=== PATIENT | female | born 1945 | race Asian ===

== ENCOUNTER 2018-05-26 12:30 | Inpatient (IN) | payer MEDICARE ==
[~2018-05-26] VITALS: Ht 147.3 cm; Wt 58.5 kg
--- NOTE | 2018-05-26 12:42 | EKG ---
[address] [address] Test Date: 2018-05-26 Test Time: 12:37:16 Pat Name: SHERI VAZQUEZ Department: Room: Gender: F Offset Pressman: : 1945 Requested By: NOBLE FAY Order Number: [id number] Reading MD: Michael Westbrook MD Measurements Intervals [place] Rate: 76 P: 62 DC: 184 QRS: 52 QRSD: 76 T: 38 QT: 382 QTc: 434 Interpretive Statements SINUS RHYTHM Electronically Signed On 05-29-2018 11:06:57 CDT by Michael Westbrook MD
--- NOTE | 2018-05-26 12:45 | RAD ---
CT CODE STROKE HEAD WO History: CODE STROKE, SLURRED SPEECH, GENERALIZED WEAKNESS, CAN NOT FEEL LEGS Comparison: None. Technique: Noncontrast CT imaging was performed of the head. Exposure: One or more of the following individualized dose reduction techniques were utilized for this examination: 1. Automated exposure control 2. Adjustment of the mA and/or kV according to patient size 3. Use of iterative reconstruction technique. Findings: No acute extra-axial or parenchymal hemorrhage is identified. There is no significant intra-axial mass effect, midline shift, or extra-axial fluid collection. The zaragoza-white differentiation of the major vascular territories is preserved. The ventricles, sulci, and cisterns are within normal limits in size and configuration. There is some patchy mild ill-defined low-density of the supratentorial parenchyma. The mastoid air cells and the visualized paranasal sinuses are aerated. No acute calvarial abnormality is identified. There is atherosclerotic calcification of the carotid siphons bilaterally. Impression: 1. No acute intracranial abnormality is identified. If there is concern for evolving or acute ischemia, followup CT or MRI could be beneficial. There is patchy mild ill-defined low-density of the supratentorial parenchyma, possibly due to chronic microvascular ischemic disease. FOR INTERNAL CODING PURPOSES Critical result: Findings discussed with NOBLE FAY at 05/26/2018 12:39 PM. Electronically signed by: Matty Conn MD (05/26/2018 12:41 PM) [email or web address]
[2018-05-26 12:56] LABS: BASO % 0 % (0-3); EOS # 0.2 x10^3/uL (0.0-0.7); EOS % 2 % (0-3); HEMATOCRIT 39.2 % (36.0-47.0); HEMOGLOBIN 13.5 g/dL (12.0-15.5); LYMPH # 1.3 x10^3/uL (1.0-4.8); LYMPH % 13 % (24-48); MEAN CORPUSCULAR HEMOGLOBIN 32 pg (25-35); MEAN CORPUSCULAR HGB CONC 34 g/dL (31-37); MEAN CORPUSCULAR VOLUME 93 fL (79-100); MONO # 0.9 x10^3/uL (0.0-1.1); MONO % 9 % (0-9); NEUT # 7.8 x10^3uL (1.8-7.7); NEUT % 77 % (31-73); PLATELET COUNT 302 x10^3/uL (140-400); RED BLOOD COUNT 4.23 x10^6/uL (3.50-5.40); RED CELL DISTRIBUTION WIDTH 14.7 % (11.5-14.5); WHITE BLOOD COUNT 10.2 x10^3/uL (4.0-11.0)
--- NOTE | 2018-05-26 12:57 | RAD ---
Portable chest, 05/26/2018: HISTORY: Weakness, slurred speech The heart size is normal. There is moderate calcific plaquing and tortuosity of the thoracic aorta. The pulmonary vascularity is normal. No pulmonary infiltrate is seen. There is no evidence of pleural fluid. There are capsular calcifications related to bilateral breast implants. IMPRESSION: No acute cardiopulmonary abnormality is detected. Electronically signed by: Jeff De La Cruz MD (05/26/2018 12:54 PM) [facility]
[2018-05-26 13:17] LABS: ALBUMIN 3.2 g/dL (3.4-5.0); CALCIUM 8.5 mg/dL (8.5-10.1); CREATININE 0.8 mg/dL (0.6-1.0); GFR 70.5; TOTAL BILIRUBIN 0.6 mg/dL (0.2-1.0); TOTAL PROTEIN 6.3 g/dL (6.4-8.2)
[2018-05-26 13:18] LABS: POTASSIUM 3.7 mmol/L (3.5-5.1)
[2018-05-26 13:28] LABS: BACTERIA,URINE MOD /HPF (0-FEW); BILIRUBIN,URINE NEG (NEG); CLARITY,URINE CLEAR; COLOR,URINE YELLOW; GLUCOSE,URINE NEG (NEG); NITRITE,URINE NEG (NEG); RBC,URINE 0 /HPF (0-2); SQUAMOUS EPITHELIAL CELL,UR OCC /LPF; UROBILINOGEN,URINE 0.2 mg/dL (0.2 mg/dL)
[2018-05-26] MEDS ORDERED: IPRATRPIUM/ALBUTEROL 0.5/2.5MG 3 ML NEBU. NEB ONE (13:30)
[2018-05-26 13:47] LABS: % LYMPHS 10 % (24-48); % METAS 1 % (0-0); % MONOS 5 % (0-10); % SEGS 83 % (35-66); PLT ESTIMATE ADEQUATE (ADEQUATE)
--- NOTE | 2018-05-26 14:05 | PHYS DOC ---
Past History Past Medical History: COPD, Dementia, UTI Alcohol Use: None Drug Use: None Adult General Chief Complaint Chief Complaint: NEURO SYMPTOMS/DEFICITS HPI HPI 72-year-old female patient brought in by her daughter because of sudden onset of generalized weakness and dyspnea to speak that started about an over prior to arrival to ER. Patient mother who is a physician endodontic assistant called on her way to come to the Hospital regarding her mother's symptom and code stroke was activated. Patient did not have fever and chills, cough and congestion, focal neuro deficit but was weak when she wanted to get to the car. Review of Systems Review of Systems Constitutional: Denies fever or chills [] Eyes: Denies change in visual acuity, redness, or eye pain [] HENT: Denies nasal congestion or sore throat [] Respiratory: Denies cough or shortness of breath [] Cardiovascular: No additional information not addressed in HPI [] GI: Denies abdominal pain, nausea, vomiting, bloody stools or diarrhea [] : Denies dysuria or hematuria [] Musculoskeletal: Denies back pain or joint pain [] Integument: Denies rash or skin lesions [] Neurologic: Reports slurred speech and headache, denies focal weakness or sensory changes [] Endocrine: Denies polyuria or polydipsia [] All other systems were reviewed and found to be within normal limits, except as documented in this note. Current Medications Current Medications Current Medications Medications (Trade) Dose Ordered Sig/Gloria Start Time Stop Time Status Last Admin Dose Admin Albuterol/ Ipratropium (Duoneb) 3 ml 1X ONCE 05/26/18 13:30 05/26/18 13:31 DC 05/26/18 13:30 3 ML Allergies Allergies Allergies Coded Allergies Type Severity Reaction Last Updated Verified No Known Drug Allergies 05/26/18 No Physical Exam Physical Exam Constitutional: Well developed, well nourished, mild distress, non-toxic appearance. [] HENT: Normocephalic, atraumatic, oropharynx moist, no oral exudates, nose normal. [] Eyes: PERRLA, EOMI, conjunctiva normal, no discharge. [] Neck: Normal range of motion, no tenderness, supple, no stridor. [] Cardiovascular:Heart rate regular rhythm, no murmur [] Lungs & Thorax: Bilateral breath sounds clear to auscultation [] Abdomen: Bowel sounds normal, soft, no tenderness, no masses, no pulsatile masses. [] Skin: Warm, dry, no erythema, no rash. [] Back: No tenderness, no CVA tenderness. [] Extremities: No tenderness, no cyanosis, no clubbing, ROM intact, no edema. [] Neurologic: Alert and oriented X 2 like her usual, mild dyspnea at rest that gradually improved, normal motor function, normal sensory function, no focal deficits noted. NIH scale of 2[] Psychologic: Affect normal, judgement normal, mood normal. [] Current Patient Data Vital Signs Vital Signs Date Time Temp Pulse Resp B/P (MAP) Pulse Ox O2 Delivery O2 Flow Rate FiO2 05/26/18 13:39 77 20 171/78 (109) 96 Room Air 05/26/18 12:30 98.1 Lab Results Laboratory Tests Test 05/26/18 12:40 05/26/18 12:44 05/26/18 12:55 White Blood Count 10.2 x10^3/uL (4.0-11.0) Red Blood Count 4.23 x10^6/uL (3.50-5.40) Hemoglobin 13.5 g/dL (12.0-15.5) Hematocrit 39.2 % (36.0-47.0) Mean Corpuscular Volume 93 fL (79-100) Mean Corpuscular Hemoglobin 32 pg (25-35) Mean Corpuscular Hemoglobin Concent 34 g/dL (31-37) Red Cell Distribution Width 14.7 % (11.5-14.5) H Platelet Count 302 x10^3/uL (140-400) Neutrophils (%) (Auto) 77 % (31-73) H Lymphocytes (%) (Auto) 13 % (24-48) L Monocytes (%) (Auto) 9 % (0-9) Eosinophils (%) (Auto) 2 % (0-3) Basophils (%) (Auto) 0 % (0-3) Neutrophils # (Auto) 7.8 x10^3uL (1.8-7.7) H Lymphocytes # (Auto) 1.3 x10^3/uL (1.0-4.8) Monocytes # (Auto) 0.9 x10^3/uL (0.0-1.1) Eosinophils # (Auto) 0.2 x10^3/uL (0.0-0.7) Basophils # (Auto) 0.0 x10^3/uL (0.0-0.2) Segmented Neutrophils % 83 % (35-66) H Lymphocytes % 10 % (24-48) L Monocytes % 5 % (0-10) Metamyelocytes % 1 % (0-0) H Platelet Estimate Adequate (ADEQUATE) Prothrombin Time 9.3 SEC (9.4-11.4) L Prothrombin Time INR 0.9 (0.9-1.1) PTT 24 SEC (23-33) Sodium Level 130 mmol/L (136-145) L Potassium Level 3.7 mmol/L (3.5-5.1) Chloride Level 94 mmol/L (98-107) L Carbon Dioxide Level 31 mmol/L (21-32) Anion Gap 5 (6-14) L Blood Urea Nitrogen 12 mg/dL (7-20) Creatinine 0.8 mg/dL (0.6-1.0) Estimated GFR (Cockcroft-Gault) 70.5 BUN/Creatinine Ratio 15 (6-20) Glucose Level 87 mg/dL (70-99) Lactic Acid Level 1.3 mmol/L (0.4-2.0) Calcium Level 8.5 mg/dL (8.5-10.1) Total Bilirubin 0.6 mg/dL (0.2-1.0) Aspartate Amino Transferase (AST) 35 U/L (15-37) Alanine Aminotransferase (ALT) 32 U/L (14-59) Alkaline Phosphatase 75 U/L (46-116) Troponin I Quantitative < 0.017 ng/mL (0-0.055) Total Protein 6.3 g/dL (6.4-8.2) L Albumin 3.2 g/dL (3.4-5.0) L Albumin/Globulin Ratio 1.0 (1.0-1.7) Glucose (Fingerstick) 90 mg/dL (70-99) Urine Collection Type U cath Urine Color Yellow Urine Clarity Clear Urine pH 8.5 Urine Specific [place] 1.015 Urine Protein 30 mg/dl (NEG-TRACE) Urine Glucose (UA) Neg mg/dL (NEG) Urine Ketones (Stick) Neg mg/dL (NEG) Urine Blood Neg (NEG) Urine Nitrite Neg (NEG) Urine Bilirubin Neg (NEG) Urine Urobilinogen Dipstick 0.2 mg/dL (0.2 mg/dL) Urine Leukocyte Esterase Neg (NEG) Urine RBC 0 /HPF (0-2) Urine WBC 5-10 /HPF (0-4) Urine Squamous Epithelial Cells Occ /LPF Urine Bacteria Mod /HPF (0-FEW) EKG EKG EKG interpreted by me. EKG at 1237 showed normal sinus rhythm at rate of 76, no acute ST and T-wave abnormalities. Radiology/Procedures Radiology/Procedures [address] [address] IMAGING REPORT Signed PATIENT: SHERI VAZQUEZ ACCOUNT: [id number] : 1945 LOCATION: ER AGE: 72 SEX: F EXAM STATUS: PRE ER ORD. PHYSICIAN: NOBLE FAY MD REASON: weakness, slurred speech PROCEDURE: PORTABLE CHEST 1V Portable chest, 05/26/2018: HISTORY: Weakness, slurred speech The heart size is normal. There is moderate calcific plaquing and tortuosity of the thoracic aorta. The pulmonary vascularity is normal. No pulmonary infiltrate is seen. There is no evidence of pleural fluid. There are capsular calcifications related to bilateral breast implants. IMPRESSION: No acute cardiopulmonary abnormality is detected. Electronically signed by: Jeff De La Cruz MD (05/26/2018 12:54 PM) [facility] DICTATED AND SIGNED BY: JEFF DE LA CRUZ MD DATE: 05/26/18 1252 CC: NOBLE FAY MD ~ [address] [address] IMAGING REPORT Signed PATIENT: SHERI VAZQUEZ ACCOUNT: [id number] : 1945 LOCATION: ER AGE: 72 SEX: F EXAM STATUS: PRE ER ORD. PHYSICIAN: NOBLE FAY MD REASON: CODE STROKE, SLURRED SPEECH, GENERALIZED WEAKNESS PROCEDURE: CT CODE STROKE HEAD WO CT CODE STROKE HEAD WO History: CODE STROKE, SLURRED SPEECH, GENERALIZED WEAKNESS, CAN NOT FEEL LEGS Comparison: None. Technique: Noncontrast CT imaging was performed of the head. Exposure: One or more of the following individualized dose reduction techniques were utilized for this examination: 1. Automated exposure control 2. Adjustment of the mA and/or kV according to patient size 3. Use of iterative reconstruction technique. Findings: No acute extra-axial or parenchymal hemorrhage is identified. There is no significant intra-axial mass effect, midline shift, or extra-axial fluid collection. The zaragoza-white differentiation of the major vascular territories is preserved. The ventricles, sulci, and cisterns are within normal limits in size and configuration. There is some patchy mild ill-defined low-density of the supratentorial parenchyma. The mastoid air cells and the visualized paranasal sinuses are aerated. No acute calvarial abnormality is identified. There is atherosclerotic calcification of the carotid siphons bilaterally. Impression: 1. No acute intracranial abnormality is identified. If there is concern for evolving or acute ischemia, followup CT or MRI could be beneficial. There is patchy mild ill-defined low-density of the supratentorial parenchyma, possibly due to chronic microvascular ischemic disease. FOR INTERNAL CODING PURPOSES Critical result: Findings discussed with NOBLE FAY at 05/26/2018 12:39 PM. Electronically signed by: Natalya Conn MD (05/26/2018 12:41 PM) [id number] DICTATED AND SIGNED BY: NATALYA CONN MD DATE: 05/26/18 1237 CC: NOBLE FAY MD ~ Course & Med Decision Making Course & Med Decision Making Pertinent Labs and Imaging studies reviewed. (See chart for details) Evaluation of patient in ER showed 72-year-old female patient brought in by his mother because of sudden onset of slurred speech and generalized weakness. Patient had stated patient that gradually improved. Patient did not have focal neuro deficit. ct head was unremarkable except for mild uti and hyponatremia.Dr Cannon accepted admission at 1350. Dragon Disclaimer Dragon Disclaimer This electronic medical record was generated, in whole or in part, using a voice recognition dictation system. Departure Departure: Impression: Primary Impression: TIA (transient ischemic attack) Additional Impressions: UTI (urinary tract infection) Hyponatremia Disposition: ADMITTED INPATIENT (At 1351) Admitting Physician: Michael Cannon (accepted admission at 1350) Condition: IMPROVED Problem Qualifiers NOBLE FAY MD May 26, 2018 14:05
[2018-05-26] MEDS ORDERED: cefTRIAXone SODIUM 1 GM VIAL IV ONE (14:34)
[2018-05-26] MEDS ORDERED: IV NORMAL SALINE 50ML 50 ML ONE (14:34)
[2018-05-26] MEDS ORDERED: ALBU0.63 NEB (16:25)
[2018-05-26] MEDS ORDERED: FLUT1DIS5 IH (16:25)
[2018-05-26] MEDS ORDERED: ASPI-630 PO (16:25)
[2018-05-26] MEDS ORDERED: MEMA10TA PO (16:25)
[2018-05-26] MEDS ORDERED: SPIR100T4 PO (16:25)
[2018-05-26] MEDS ORDERED: LISI10TA2 PO (16:25)
[2018-05-26 16:28] VITALS: BP 166/87
[2018-05-26] MEDS ORDERED: NON FORMULARY ITEM (Albuterol Sulfate (Albuterol Sulfate Neb Soln) 1 VIAL) NEB PRN (16:30)
[2018-05-26] MEDS ORDERED: ALBUTEROL SULFATE 2.5 MG/3 ML NEBU. NEB PRN (16:45)
[2018-05-26] MEDS ORDERED: IBUPROFEN 600 MG TABLET. PO PRN (17:45)
[2018-05-26] MEDS: IV NORMAL SALINE 1,000ML 1,000 ML IV SCH (19:26)
--- NOTE | 2018-05-26 19:26 | HP ---
ADMIT DATE: 05/26/2018 HISTORY OF PRESENT ILLNESS: The patient is a 72-year-old female patient who apparently was brought to the Emergency Room complaining of weakness in both lower extremities. She is also having slurring of speech. These symptoms have apparently resolved within 2 hours. She was evaluated in the Emergency Room, has had extensive lab data, which showed that she has mild hyponatremia, serum sodium of 130. Her CT scan of the head showed no acute intracranial abnormality identified with no acute extraaxial or parenchymal hemorrhage is identified. There is no significant intraaxial mass effect, midline shift or extraaxial fluid collection. The zaragoza-white differentiation of the major vascular territories is preserved. The ventricles, sulci and cisterns are within normal limits in size and configuration. There is some patchy mild ill-defined low density of the supratentorial parenchyma. The mastoid air cells and visualized paranasal sinuses are aerated. No acute calvarial abnormality is identified. There is atherosclerotic calcification of the carotid siphons bilaterally. In fact, by the time I saw her, the patient was very sleepy and said she has not slept the whole night yesterday, but did not show any obvious neurological deficit. PAST MEDICAL HISTORY: Significant for chronic obstructive pulmonary disease, hyperlipidemia, hypertension and dementia. PAST SURGICAL HISTORY: Unremarkable. ALLERGIES: She has no known drug allergies. MEDICATIONS: She is currently on following medications: She is on albuterol sulfate 0.63 mg per 3 mL by nebulizer 4 times a day, lisinopril 10 mg once a day, spironolactone 100 mg once a day, aspirin 81 mg once a day, Namenda 10 mg twice a day, and Advair Diskus 500/50 one puff twice a day. FAMILY HISTORY: Unremarkable. SOCIAL HISTORY: She lives with her daughter. She apparently does not smoke, drink alcohol or use any recreational drugs. REVIEW OF SYSTEMS: As per history of present illness. PHYSICAL EXAMINATION: GENERAL: On arrival to the Emergency Room, she looked well and was clearly in no apparent respiratory distress. There was no pallor, jaundice, or cyanosis. No lymphadenopathy, no thyromegaly. No jugular venous distension. No limb edema. VITAL SIGNS: Her heart rate was 78, blood pressure 171/78, temperature was 98.1, respiratory rate was 18 and oxygen saturation was 96% on room air. HEAD, EYES, EARS, NOSE AND THROAT: Showed normocephalic, atraumatic. NECK: Supple. HEART: Showed normal first and second heart sounds with no gallop, rub or murmur. CHEST: Clear to auscultation. No crepitation or rhonchi. ABDOMEN: Distended, soft, nontender. No guarding or rigidity. No organomegaly. Hernial orifice intact and bowel sounds normal. NEUROLOGIC: She says somewhat sleepy with easily arousable. All her cranial nerves intact. She moves her extremities spontaneously. She has no evidence of any cerebellar dysfunction. LABORATORY DATA: While in the Emergency Room, she had lab work done, which showed a white cell count of 10,000, hemoglobin 13.5, hematocrit 39, MCV 93, and platelet count of 302,000. Her chemistry showed a serum sodium 130, potassium 3.7, chloride 94, bicarbonate 31, anion gap of 5, BUN 12, creatinine 0.8, estimated GFR was 70 mL per minute. Her glucose was 87, lactic acid is 1.3, calcium was 8.5. Total bilirubin, AST, ALT, alkaline phosphatase were normal. Her total protein was 6.3, albumin 3.2. Her prothrombin time was 9.3, INR was 0.9, aPTT was 24. Her urinalysis showed the urine was yellow, clear with a pH of 8.5, specific gravity 1.015. There is small amount of protein. The urine was negative for glucose, ketones, blood, nitrite and leukocyte esterase. There are no rbc's, very few wbc's and moderate amount of bacteria. DIAGNOSTIC DATA: Her chest x-ray showed that the heart size is normal. There is moderate calcific plaquing and tortuosity of the thoracic aorta. The pulmonary vascularity is normal. No pulmonary infiltrate is seen. There is no evidence of pleural fluid or capsular calcification related to bilateral breast implants. Her CT scan of the head showed no acute intracranial abnormality identified. There is patchy mild ill-defined low density of the supratentorial parenchyma, possibly due to chronic microvascular ischemic disease. ASSESSMENT AND PLAN: The patient was admitted with possible transient ischemic attack. She has multiple other medical problems including chronic obstructive pulmonary disease, hyperlipidemia, hypertension. We will continue with all her current medications. We will consult Dr. Perez. We will check her lipid profile tomorrow as well as do bilateral carotid Doppler ultrasound. We will also consult the physical and occupational therapist. VINCENT MARTINEZ MD DR: EMILY/john JOB#: [id number] / [id number]
[2018-05-26 19:35] VITALS: BP 152/88
--- NOTE | 2018-05-26 19:54 | RAD ---
Bilateral carotid arterial duplex study 05/26/2018 Clinical History: Slurred speech. Bilateral lower extremity weakness. Technique: Using a combination of real-time ultrasound imaging and color-flow and pulse Doppler imaging techniques, duplex evaluation of the carotid and vertebral arterial structures within the neck was performed. Multiple images were obtained. Velocity measurements estimating the degree of stenosis are based on NASCET criteria. Findings: Mild atheromatous plaque formation is seen involving both carotid bifurcations. The peak systolic velocities are not significantly elevated. No hemodynamically significant stenosis is seen. The vertebral arteries demonstrate normal antegrade flow. Impression: Mild atheromatous plaque formation is seen involving both carotid bifurcations. No hemodynamically significant stenosis is seen. Electronically signed by: Magdiel Martinez MD (05/26/2018 7:51 PM) [facility]
[2018-05-26] MEDS: BUDESONIDE 0.5 MG/2 ML NEBU NEB SCH (20:00)
[2018-05-26] MEDS: ALBUTEROL SULFATE 2.5 MG/3 ML NEBU. NEB SCH (20:00)
[2018-05-26] MEDS: MEMANTINE 5 MG TABLET. PO SCH (20:52)
[2018-05-26] MEDS ORDERED: NON FORMULARY ITEM (Fluticasone/Salmeterol (Advair 500-50 Diskus) 1 PUFF) IH SCH (21:00)
[2018-05-26 22:58] VITALS: BP 178/82
[2018-05-27] MEDS: ALBUTEROL SULFATE 2.5 MG/3 ML NEBU. NEB SCH ×4 (05:03→20:11)
[2018-05-27 05:39] VITALS: BP 179/79
[2018-05-27 06:47] LABS: CALCIUM 7.9 mg/dL (8.5-10.1); CREATININE 0.7 mg/dL (0.6-1.0); GFR 82.3; POTASSIUM 3.4 mmol/L (3.5-5.1)
[2018-05-27 07:39] VITALS: BP 155/76
[2018-05-27] MEDS ORDERED: POTASSIUM CHLORIDE 20 MEQ TABLET.ER. PO ONE (07:45)
[2018-05-27] MEDS: ASPIRIN 81 MG TAB.CHEW PO SCH (08:31)
[2018-05-27] MEDS: MEMANTINE 5 MG TABLET. PO SCH ×2 (08:31→20:14)
[2018-05-27] MEDS: IV NORMAL SALINE 1,000ML 1,000 ML IV SCH (08:32)
[2018-05-27] MEDS ORDERED: SPIRONOLACTONE 25 MG TABLET PO SCH (09:00)
[2018-05-27] MEDS ORDERED: LISINOPRIL 10 MG TABLET PO SCH (09:00)
[2018-05-27] MEDS: BUDESONIDE 0.5 MG/2 ML NEBU NEB SCH ×2 (10:37→20:11)
[2018-05-27 11:49] VITALS: BP 140/64
[2018-05-27] MEDS: methylPREDNISolone SOD SUCC PF 40 MG/ML VIAL. IV SCH ×2 (13:59→21:37)
[2018-05-27] MEDS: POTASSIUM CHLORIDE 20 MEQ TABLET.ER. PO SCH ×2 (13:59→20:14)
[2018-05-27 15:58] VITALS: BP 138/81
[2018-05-27 18:25] VITALS: BP 144/85
--- NOTE | 2018-05-27 19:13 | PN ---
DATE: 05/27/2018 SUBJECTIVE: The patient denies any new medical or neurological complaints OBJECTIVE: GENERAL: Well-developed, well-nourished female, not in acute distress. VITAL SIGNS: Blood pressure 152/88, respiratory rate 16, pulse is 79 and regular, temperature 98.3, oxygen saturation is 95% on room air. HEENT: Normocephalic, atraumatic, otherwise unremarkable. NECK: Supple. Negative for carotid bruit, lymphadenopathy or thyromegaly. LUNGS: Clear to A and P. CARDIOVASCULAR: Regular rhythm. Normal S1, S2. There is no S3, S4, or murmur. ABDOMEN: Soft. Bowel sounds positive. EXTREMITIES: Negative for cyanosis, clubbing or pitting edema. NEUROLOGIC: Normal mental status and intact cranial nerves. There is no evidence of focal motor or sensory deficit. Deep tendon reflexes were symmetric with absent Achilles responses. Gait not tested. LABORATORY DATA: Chemistry revealed sodium 128, potassium 3.4, chloride 96, CO2 of 28, BUN 12, creatinine 0.7, glucose 86, calcium 7.9. IMPRESSION: 1. Possible transient ischemic attack -- resolved without any neurological deficit. 2. Multiple medical problems include hypertension, hyperlipidemia, chronic radicular lower back pain, chronic neck pain, hyponatremia, and mild hypokalemia. RECOMMENDATIONS: 1. Correct hyponatremia slowly potassium supplements. 2. Physical therapy as tolerated. 3. Continue with current management initiated by Dr. Cannon. M Sd VILLA MD DR: PAOLA/john JOB#: [id number] / [id number]
--- NOTE | 2018-05-27 19:17 | CONS ---
DATE OF CONSULTATION: 05/26/2018 REFERRING PHYSICIAN: Dr. Cannon. REASON FOR CONSULTATION: Rule out stroke versus TIA. HISTORY OF PRESENT ILLNESS: This is a 72-year-old right-handed, female who was admitted through Emergency Room after she presented with a 2-hour history of slurred speech and generalized weakness, more prominent on the lower extremities. The patient denies headaches, visual disturbances, nausea, vomiting, chest pain, shortness of breath or palpitation or dysphagia or vertigo. On arrival to Emergency Room, her vital signs revealed a blood pressure of 171/78. A nonenhanced head CT scan revealed no evidence of acute intracranial process, but it showed a chronic microvascular ischemic disease. PAST MEDICAL HISTORY: Significant for hypertension, dementia, chronic obstructive pulmonary disease, and hyperlipidemia, chronic low back pain, chronic neck pain, history of peripheral neuropathy in the lower extremities. PAST SURGICAL HISTORY: The patient underwent a cardiac catheterization and revealed no evidence of coronary artery disease. Otherwise, unremarkable. ALLERGIES: No known drug allergies. FAMILY HISTORY: Noncontributory. SOCIAL HISTORY: The patient is . She did quit smoking a long time ago and she denies alcohol drinking or illicit drug use. CURRENT HOME MEDICATIONS: Includes albuterol inhaler and nebulizer, lisinopril 10 mg once daily, spironolactone 100 mg daily, aspirin 81 mg daily, Namenda 10 mg daily, Advair Diskus inhaler 1 puff twice daily. REVIEW OF SYSTEMS: A 10-point review of systems as mentioned above in history of present illness. PHYSICAL EXAMINATION: GENERAL: Obese white female, not in acute distress. She is a well-developed, well-nourished white female, not in acute distress. She weighs 134.5 pounds. VITAL SIGNS: Blood pressure is 152/88, respiratory rate 16, pulse is 79, temperature is 98.3, oxygen saturation is 95% on room air. HEENT: Normocephalic, atraumatic, otherwise unremarkable. NECK: Supple. Negative for carotid bruit, lymphadenopathy or thyromegaly. LUNGS: Clear to A and P. CARDIOVASCULAR: Regular rate and rhythm, normal S1, S2. There is no S3, S4 or murmur. ABDOMEN: Soft. Bowel sounds positive. EXTREMITIES: Negative for cyanosis, clubbing or pitting edema. NEUROLOGIC: Mental Status: The patient is alert and oriented x 3. The speech is fluent. There is no language dysfunction. Memory, judgment, and abstract thinking are fair. The patient denies hallucination or delusion. Cranial Nerves: Visual gar are full. The pupils are reactive to light and accommodation. The extraocular movements are intact. There is no nystagmus. There is no facial motor or sensory deficit. Hearing is intact bilaterally. The palate is elevated symmetrically. Sternocleidomastoid muscles are powerful bilaterally. The patient shrugs her shoulders symmetrically, protrudes her tongue in the midline without fasciculation or atrophy. Motor: No focal muscle bulk was seen. The tone is normal. The strength is 5/5 throughout. Sensory examination revealed diminished pinprick and light touch senses in patchy distributions in both lower extremities. Deep tendon reflexes were symmetric with absent Achilles responses. Gait not tested. LABORATORY DATA: CBC revealed white blood cells of 10.2 thousand, hemoglobin 13.5, hematocrit 39.2, platelet count 302,000. Chemistry revealed sodium of 130, potassium 3.7, chloride 194, CO2 of 31, BUN 12, creatinine 0.8 and glucose 87. Liver enzymes are normal. Urinalysis is negative for urinary leukocyte esterase, negative nitrite with white blood cells of 5-10. DIAGNOSTIC: Carotid Doppler study revealed no significant carotid stenosis. A chest x-ray revealed evidence of cardiopulmonary process and nonenhanced head CT scan as mentioned above in history of present illness. RECOMMENDATIONS: 1. Questionable of TIA with a normal neurological examination and negative carotid Doppler study for significant arterial stenosis. 2. Mild hyponatremia. 3. Multiple medical problems include hypertension, hyperlipidemia, chronic radicular lower back pain and possible peripheral neuropathy in the lower extremities. RECOMMENDATION: 1. Continue with current management as initiated by Dr. Cannon. 2. Continue with aspirin and home medications. 3. Physical therapy evaluation. 4. We will arrange to have EMG/NCS of the lower extremities to rule out lumbosacral radiculopathy versus entrapment neuropathy in the lower extremity versus peripheral neuropathy. M Sd VILLA MD DR: PAOLA/john JOB#: [id number] / [id number]
--- NOTE | 2018-05-27 20:09 | PN ---
DATE: 05/27/2018 SUBJECTIVE: The patient is resting slightly propped up in bed, in no apparent distress. She denied any slurring of speech or difficulty, weakness of both lower extremities. 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 We discontinued her spironolactone as well as lisinopril. I discontinued her IV fluid and started her on fluid restriction about 1200 mL in 24 hours a day. She continued to be extremely wheezy and therefore, we will start her on IV steroids and we will monitor her labs closely. PHYSICAL EXAMINATION: GENERAL: When I examined her this morning, she looked well and was clearly in no apparent respiratory distress, pale, but no jaundice, cyanosis, or thyromegaly. No jugular venous distension. No lower limb edema. VITAL SIGNS: Her heart rate was 74, blood pressure was 155/76, temperature was 97.6, respiratory rate was 18, and oxygen saturation was 97%. HEAD, EYES, EARS, NOSE AND THROAT: Showed normocephalic, atraumatic. NECK: Supple. HEART: Showed normal first and second heart sounds with no gallop, rub or murmur. CHEST: Clear to auscultation. No crepitation or rhonchi. Chest was some central trachea, equal bilateral expansion, air entry, vesicular sounds with scattered rhonchi, I could not appreciate any crepitation. ABDOMEN: Distended, soft, and nontender. NEUROLOGIC: She is awake, alert, responding appropriately. Cranial nerves intact. She moves extremities without difficulty, although she refused to work with physical therapy this morning. Her intake over the last 24 hours was 915 mL, no output was recorded. LABORATORY DATA: Her lab work this morning showed that her sodium is down to 128, potassium 3.4, chloride 96, bicarbonate 28, anion gap of 4, BUN 12, creatinine was 0.7, estimated GFR was 82 mL per minute. Her glucose was 86, calcium was 7.9. Uric acid is only 2.4. Her serum triglycerides were 334, total cholesterol was 285, LDL was 170, and VLDL was 6, and HDL cholesterol was 109, ratio was 2. Her TSH was 2.26. Her white cell count is 10,000, hemoglobin 13.5, hematocrit 39, MCV 93, and platelet count of 302,000. Her PT, INR and aPTT were normal. Urinalysis showed that she has moderate amount of bacteria, 5-10 wbc's, and no rbc's. ASSESSMENT: This is a 72-year-old [place] female patient who was admitted with slurring of speech and bilateral lower extremity weakness that apparently has resolved by the time she arrived to the Emergency Room. Her CT scan of the head was unremarkable and her bilateral carotid Doppler showed mild atheromatous plaque formation is seen involving both carotid bifurcation. The peak systolic velocities are not significantly elevated. No hemodynamically significant stenosis seen. The vertebral arteries demonstrate normal antegrade flow. PLAN: My plan is to discontinue her spironolactone and lisinopril. Discontinue intravenous fluid. We will start fluid restriction. I will start her also on Solu-Medrol 40 mg intravenous every 8 hourly and we will monitor her laboratory work closely. IVNCENT MARTINEZ MD DR: EMILY/john JOB#: [id number] / [id number]
[2018-05-27] MEDS: LACTOBACILLUS RHAMNOSUS GG 1 CAPSULE. PO SCH (20:14)
[2018-05-27] MEDS: guaiFENesin DM 200MG/20MG 10 ML SYRUP PO PRN (20:14)
[2018-05-28] MEDS: guaiFENesin DM 200MG/20MG 10 ML SYRUP PO PRN (00:30)
[2018-05-28] MEDS: ALBUTEROL SULFATE 2.5 MG/3 ML NEBU. NEB SCH (05:12)
[2018-05-28] MEDS: methylPREDNISolone SOD SUCC PF 40 MG/ML VIAL. IV SCH (05:32)
[2018-05-28 05:51] VITALS: BP 137/81
[2018-05-28 06:53] LABS: CALCIUM 8.9 mg/dL (8.5-10.1); CREATININE 0.8 mg/dL (0.6-1.0); GFR 70.5; MAGNESIUM 2.3 mg/dL (1.8-2.4); POTASSIUM 4.8 mmol/L (3.5-5.1)
[2018-05-28] MEDS: BUDESONIDE 0.5 MG/2 ML NEBU NEB SCH (08:00)
[2018-05-28] MEDS: POTASSIUM CHLORIDE 20 MEQ TABLET.ER. PO SCH (09:00)
[2018-05-28] MEDS: ASPIRIN 81 MG TAB.CHEW PO SCH (09:15)
[2018-05-28] MEDS: LACTOBACILLUS RHAMNOSUS GG 1 CAPSULE. PO SCH (09:15)
[2018-05-28] MEDS: MEMANTINE 5 MG TABLET. PO SCH (09:15)
[2018-05-28] MEDS ORDERED: CEFP200T PO (12:02)
[2018-05-28] MEDS ORDERED: AMLO5TAB7 PO (12:03)
--- NOTE | 2018-05-28 12:57 | DS ---
DATE OF DISCHARGE: HOSPITAL COURSE: The patient is a 72-year-old [place] female patient, who was admitted with slurring of speech and weakness of both legs that has resolved. She was found also to be hyponatremic. We did put her in a fluid restriction as attempted normal saline until serum sodium further down. She is also having severe bronchospasm for which she started her on IV Solu-Medrol. Her urinalysis showed that she has urinary tract infection, although the culture is still pending at the time of this dictation. She was started on Rocephin. She remained stable. She was up and about walking with a walker back to her baseline. Her sodium has improved to 130. Her bronchospasm has completely resolved. A decision was made to discharge her home to continue with tapering course of steroids, cefpodoxime and amlodipine for blood pressure control. I discontinued her spironolactone as well as her lisinopril. PHYSICAL EXAMINATION: When I examined her this afternoon, she looked well and was clearly in no apparent respiratory distress. No pallor, jaundice, cyanosis or thyromegaly. No jugular venous distension. No lower limb edema. VITAL SIGNS: Her heart rate was 96, blood pressure was 137/81, temperature was 98, respiratory rate was 20, and oxygen saturation was 96% on room air. HEAD, EYES, EARS, NOSE AND THROAT: Showed normocephalic, and atraumatic. NECK: Supple. HEART: Showed normal first and second sounds. No gallop, rub or murmur. CHEST: Clear to auscultation. No crepitation or rhonchi. ABDOMEN: Distended, soft, and nontender. No guarding or rigidity. No organomegaly. Her hernial orifice intact. Bowel sounds normal. NEUROLOGIC: She was awake, alert, responding appropriately. Cranial nerves intact. EXTREMITIES: She moves extremities without difficulty. She ambulates with a walker. LABORATORY DATA: Her lab work this morning showed a white cell count 10,200, hemoglobin 13.5, hematocrit 39, MCV 93, and platelet count of 302,000. Her serum sodium is up to 130, potassium 4.8, chloride 99, bicarbonate 24, anion gap of 7, BUN 16, creatinine 0.8, estimated GFR was 70 mL per minute. Her glucose was 143, calcium was 8.9, magnesium was 2.3. Her TSH is normal at 2.26. Her uric acid was only 2.4. Serum triglycerides were 34, total cholesterol was 285, LDL cholesterol was 170, HDL cholesterol of 109, the ratio was 2. TSH was 2.260. Her prothrombin time was 9.3, INR of 0.9, aPTT was 24. Her urinalysis showed the urine was yellow, clear with a pH of 8.5, specific gravity of 06/05/2018. There is small amount of protein. The urine was negative for glucose, ketones, blood, nitrite and leukocyte esterase; however, there were 5-10 wbc's and moderate amount of bacteria. We did her CT scan of the head was unremarkable and showed there are no acute intracranial abnormalities identified. There is no significant intraaxial mass effect, midline shift or extraaxial fluid collection. The zaragoza-white differentiation of the major vascular territories is preserved. The ventricles, sulci and cisterns are within normal limits in size and configuration. There is some patchy mild ill-defined low density of the supratentorial parenchyma. The mastoid air cells and the visualized paranasal sinuses are aerated. No acute calvarial abnormality identified. There is atheromatous calcification of the carotid siphons bilaterally. The bilateral carotid Doppler ultrasound and arterial Doppler ultrasound showed mild atheromatous plaque formation is seen involving both carotid bifurcation. No hemodynamically significant stenosis seen. DISCHARGE MEDICATIONS: The patient was discharged home to continue on tapering course of steroids, amlodipine 5 mg once a day, cefpodoxime proxetil 100 mg twice a day for 5 more days, albuterol sulfate 1 vial by nebulizer 4 times a day as needed, aspirin 81 mg once a day, Advair Diskus 500/50 one puff twice a day, and Namenda 10 mg twice a day. FINAL DISCHARGE DIAGNOSES: Transient ischemic attack, resolved. Hyponatremia, resolved. Chronic obstructive pulmonary disease exacerbation, resolved, urinary tract infection, discharged on cefpodoxime. VINCENT MARTINEZ MD DR: EMILY/john JOB#: [id number] / [id number]
== END 2018-05-28 12:26 | disposition home or self-care (01) | DRG 191 ==
LOC: ER 12:30 → ICU 16:18 → 1 SOUTH 05-27 15:56
PROVIDERS: ADMIT Internal Medicine; ATTEND Internal Medicine
DX: J44.1 Chronic obstructive pulmonary disease with (acute) exacerbation (principal); G45.9 Transient cerebral ischemic attack, unspecified; E22.2 Syndrome of inappropriate secretion of antidiuretic hormone; N39.0 Urinary tract infection, site not specified; E87.6 Hypokalemia; F03.90 Unspecified dementia, unspecified severity, without behavioral disturbance, psychotic disturbance, mood disturbance, and anxiety; E78.5 Hyperlipidemia, unspecified; G89.29 Other chronic pain; G62.9 Polyneuropathy, unspecified; I10 Essential (primary) hypertension; M54.5 Low back pain; Z79.82 Long term (current) use of aspirin; Z86.73 Personal history of transient ischemic attack (TIA), and cerebral infarction without residual deficits; Z98.82 Breast implant status; Z87.891 Personal history of nicotine dependence
CPT/HCPCS: 36415; 70450; 71045; 80048; 80053; 80061; 81001; 82533; 82947; 83605; 83735; 84443; 84484; 84550; 85007; 85025; 85610; 85730; 87040; 87086; 87641; 90471; 90756; 93005; 93880; 94640; 96365; J0696; J2920; J3010; J7613; J7620; J7626; 99285-25; J7030; Q2035